=== PATIENT | male | born 1985 | race Caucasian/White ===

== ENCOUNTER 2021-07-06 20:14 | Emergency (ER) | payer OTHER ==
[2021-07-07] MEDS ORDERED: VIBRAMYCIN100 MG PO (00:59)
[2021-07-07] MEDS ORDERED: BACTRIM DS TAB1 EACH PO (00:59)
== END 2021-07-07 01:15 | disposition home or self-care (01) ==
LOC: FER 20:14
DX: L02.413 Cutaneous abscess of right upper limb (principal); Z23 Encounter for immunization; F17.200 Nicotine dependence, unspecified, uncomplicated
CPT/HCPCS: 73070; 90471; 90715